=== PATIENT | female | born 1985 | race Caucasian/White ===

== ENCOUNTER 2017-07-09 15:15 | Outpatient (CLI) | payer OTHER | END 2017-07-09 15:16 | LOC: LAB.WCP 15:15 | PROVIDERS: ATTEND Physician Assistant | DX: R35.0 Frequency of micturition (principal); R10.9 Unspecified abdominal pain | CPT/HCPCS: 87086 ==

== ENCOUNTER 2017-11-22 08:19 | Outpatient (CLI) | payer OTHER ==
[2017-11-22] MEDS ORDERED: IOPAMIDOL-300 100 ML VIAL ONE (08:41)
[2017-11-22] MEDS ORDERED: IOPAMIDOL-300 100 ML VIAL IVP ONE ×2 (11:53)
--- NOTE | 2017-11-22 16:21 | CT Report ---
Reason: MASTODYNIA Procedure Date: 11/22/2017 Accession Number: [id number] / [id number] Procedure: CT - Chest W/ CPT Code: FULL RESULT: EXAM: CT CHEST EXAM DATE: 11/22/2017 09:41 AM. CLINICAL HISTORY: Mastodynia. COMPARISONS: Chest w/ 11/22/2017 9:29 AM. TECHNIQUE: Routine helical CT imaging was performed through the chest. IV contrast: None. Reconstructions: Coronal and sagittal. In accordance with CT protocol optimization, one or more of the following dose reduction techniques were utilized for this exam: automated exposure control, adjustment of mA and/or KV based on patient size, or use of iterative reconstructive technique. FINDINGS: Despite maximal field of view, the CT scanner bore does not allow visualization of the lateral most portions of both breasts on this examination. Lungs/Pleura: No nodules, bronchial thickening, consolidation, or edema. Pulmonary vasculature is normal. No pericardial or pleural effusion. No pneumothorax. Mediastinum: Normal. No adenopathy or masses. The heart and great vessels are normal. Bones: Unremarkable. Visualized Abdomen: Unremarkable. Other: None. IMPRESSION: Bilateral retroglandular breast implants. No abscess is identified. The lateral most portions of both breasts outside of the field of view. Recommendation: If clinical concern is for glandular breast pathology or implant malfunction, consider ultrasound of the breast or mammography/tomosynthesis as per ACR appropriateness criteria. These represent the imaging modality of choice for both breast pain and implant integrity. [facility]
== END 2017-11-22 08:20 | disposition home or self-care (01) ==
LOC: DI 08:19
PROVIDERS: ATTEND Obstetrics & Gynecology
DX: N64.4 Mastodynia (principal); Z98.82 Breast implant status
CPT/HCPCS: 71260; Q9967

== ENCOUNTER 2017-12-20 17:20 | Outpatient (CLI) | payer OTHER | END 2017-12-20 17:21 | disposition home or self-care (01) | LOC: LAB.R 17:20 | PROVIDERS: ATTEND Physician Assistant | DX: R35.0 Frequency of micturition (principal) | CPT/HCPCS: 87086 ==

== ENCOUNTER 2018-01-14 20:57 | Outpatient (CLI) | payer OTHER ==
--- NOTE | 2018-01-15 02:36 | Ultrasound Report ---
Reason: PELVIC PAIN Procedure Date: 01/14/2018 Accession Number: [id number] / [id number] Procedure: US - Pelvic w/Transvaginal CPT Code: FULL RESULT: EXAM: PELVIC ULTRASOUND EXAM DATE: 01/14/2018 09:32 PM. CLINICAL HISTORY: PELVIC PAIN. COMPARISON: ABDOMEN/PELVIS W/ 02/10/2016 5:12 PM. TECHNIQUE: Realtime transabdominal pelvic scan performed to identify the uterus and adnexa and as an overview of other pelvic structures, followed by transvaginal scan to provide greater detail of the uterus and adnexa, with static image documentation. FINDINGS: Uterus: 6.7 x 4.0 x 2.9 cm, volume 41 cc. Anteverted position. Normal overall size and echotexture. Masses: None. Endometrium: 7 mm. Normal. Cervix: Unremarkable. Right Ovary: 2.9 x 2.6 x 2.4 cm, volume 9 cc. Normal echotexture and blood flow. Incidental 2 cm follicle. Left Ovary: 2.6 x 2.3 x 1.9 cm, volume 6 cc. Normal echotexture and blood flow. Free Fluid: None. Other: None. IMPRESSION: Normal pelvic ultrasound. [facility]
== END 2018-01-14 20:58 | disposition home or self-care (01) ==
LOC: DI 20:57
PROVIDERS: ATTEND Registered Nurse
DX: R10.2 Pelvic and perineal pain (principal)
CPT/HCPCS: 76830; 76856

== ENCOUNTER 2020-02-23 16:40 | Outpatient (CLI) | payer OTHER ==
--- OUTSIDE RECORDS SUMMARY | 2020-02-24 04:53 | EXTERNAL MEDICAL SUMMARY RPT | Continuity of Care Document ---
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 PROSTHETIC DEV,IMPL,GRF 2013-03-25 16:15 ABDOMINAL PAIN, UNSPECIFIED [facility] 2013-05-05 09:06 OTH CELLS/CASTS IN URINE [facility] 2013-09-01 16:00 OTH MALAISE FATIGUE [facility] 2015-01-26 07:25 UNSPECIFIED CHRONIC GASTRITIS [facility] WITHOUT BLEEDING 2015-04-04 20:01 ACUTE VAGINITIS [facility] 2015-08-29 17:00 DYSURIA [facility] 2015-09-21 15:45 DYSURIA [facility] 2015-10-07 17:38 DYSURIA [facility] 2016-02-10 15:49 OTHER CHRONIC CYSTITIS WITHOUT [facility] HEMATURIA 2016-06-30 12:45 OTH SPECIFIC ARTHROPATHIES, [facility] NEC, OTH SITE 2017-07-09 15:15 UNSPECIFIED ABDOMINAL PAIN [facility] 2017-07-09 15:15 FREQUENCY OF MICTURITION [facility] 2017-11-22 08:19 MASTODYNIA [facility] 2017-11-22 08:19 BREAST IMPLANT STATUS [facility] dical [place] 2017-12-20 17:20 FREQUENCY OF MICTURITION [facility] 2018-01-14 20:57 PELVIC AND PERINEAL PAIN [facility] 2020-01-04 00:00:00 Health-related behavior [facility] [place] [facility] 2020-01-04 00:00:00 Tobacco use and exposure [facility] 2020-01-04 00:00:00 Exercise [facility] 2020-01-04 00:00:00 Never smoker [facility] 2020-01-04 00:00:00 Little interest or pleasure in [facility] doing things? [facility] 2020-01-04 00:00:00 Feeling down, depressed, or idbeyHe [facility] hopeless? [facility] 2020-01-04 00:00:00 Patient Health Questionnaire 2 [facility] item (PHQ2) total score [facility] 2020-01-04 00:00:00 Alcohol use [facility] 2020-01-04 00:00:00 Tobacco smoking status NHIS [facility] 2020-01-04 00:00:00 Total score? [facility] Allergies date description facility FLUOXETINE [facility] HYDROCHLOROTHIAZIDE W-TRIAMTERENE [facility] METAXALONE [facility] [id number] [facility] LISINOPRIL-HYDROCHLOROTHIAZIDE [facility] ANGIE INHIBITORS [facility] CORTICOSTEROIDS [facility] NO KNOWN ALLERGIES [facility] SULFA (SULFONAMIDE ANTIBIOTICS) [facility] NO KNOWN ALLERGIES [facility] CITALOPRAM ANALOGUES [facility] SHELLFISH DERIVED [facility] ACETAZOLAMIDE [facility] AMLODIPINE [facility] HYDROMORPHONE [facility] ATORVASTATIN [facility] BEE VENOM [facility] BENZYL ALCOHOL [facility] HY[facility]OCODONE [facility] INDOMETHACIN [facility] NAPROXEN [facility] TESTOSTERONE CYPIONATE [facility] Center PENICILLINS [facility] NO KNOWN ALLERGIES [facility] No Known Drug [facility]ergies [facility] NO KNOWN ENVIRONMENTAL ALLERGIES [facility] PENICILLINS [facility] SULFA ANTIBIOTICS [facility] PERFUME [facility] No Known Drug Allergies [facility] CLINDAMYCIN [facility] CORTISONE [facility] ERYTHROMYCIN [facility] PENICILLINS [facility] NO ALLERGY INFORMATION AVAILABLE [facility] No Known Drug Allergies [facility] Results test status date ordered by attending specimen jesus e Calcium unknown 2020-01-01 unknown unknown unknown 00:00:00 Glucose unknown 2020-01-01 unknown unknown unknown 00:00:00 BUN unknown 2020-01-01 unknown unknown unknown 00:00:00 Cholesterol_Total unknown 2020-01-01 unknown unknown unkn own 00:00:00 Protein_Total unknown 2020-01-01 unknown unknown unknown 00:00:00 Albumin unknown 2020-01-01 unknown unknown unknown 00:00:00 Bilirubin_Total unknown 2020-01-01 unknown unknown unknow n 00:00:00 Alkaline_Phosphatase unknown 2020-01-01 unknown unknown u nknown 00:00:00 AST_SGOT_ unknown 2020-01-01 unknown unknown unknown 00:00:00 Triglycerides unknown 2020-01-01 unknown unknown unknown 00:00:00 Potassium unknown 2020-01-01 unknown unknown unknown 00:00:00 Sodium unknown 2020-01-01 unknown unknown unknown 00:00:00 Chloride unknown 2020-01-01 unknown unknown unknown 00:00:00 Creatinine unknown 2020-01-01 unknown unknown unknown 00:00:00 Hemoglobin_A1c unknown 2020-01-01 unknown unknown unknown 00:00:00 ALT_SGPT_ unknown 2020-01-01 unknown unknown unknown 00:00:00 Carbon_Dioxide_Total unknown 2020-01-01 unknown unknown u nknown 00:00:00 WBC unknown 2020-01-01 unknown unknown unknown 00:00:00 RBC unknown 2020-01-01 unknown unknown unknown 00:00:00 Hemoglobin unknown 2020-01-01 unknown unknown unknown 00:00:00 Hematocrit unknown 2020-01-01 unknown unknown unknown 00:00:00 BUN_Creatinine_Ratio unknown 2020-01-01 unknown unknown u nknown 00:00:00 HDL_Cholesterol unknown 2020-01-01 unknown unknown unknow n 00:00:00 Globulin_Total unknown 2020-01-01 unknown unknown unknown 00:00:00 A_G_Ratio unknown 2020-01-01 unknown unknown unknown 00:00:00 MCV unknown 2020-01-01 unknown unknown unknown 00:00:00 MCH unknown 2020-01-01 unknown unknown unknown 00:00:00 MCHC unknown 2020-01-01 unknown unknown unknown 00:00:00 Neutrophils unknown 2020-01-01 unknown unknown unknown 00:00:00 Lymphs unknown 2020-01-01 unknown unknown unknown 00:00:00 Monocytes unknown 2020-01-01 unknown unknown unknown 00:00:00 Eos unknown 2020-01-01 unknown unknown unknown 00:00:00 Basos unknown 2020-01-01 unknown unknown unknown 00:00:00 Platelets unknown 2020-01-01 unknown unknown unknown 00:00:00 Lymphs_Absolute_ unknown 2020-01-01 unknown unknown unkno wn 00:00:00 Monocytes_Absolute_ unknown 2020-01-01 unknown unknown un known 00:00:00 mean_corpuscular_hemo unknown 2020-01-01 unknown unknown unknown globin_concentration_R 00:00:00 BC red_blood_cell_distri unknown 2020-01-01 unknown unknown unknown bution_width 00:00:00 mean_corpuscular_hemo unknown 2020-01-01 unknown unknown unknown globin_RBC 00:00:00 RDW unknown 2020-01-01 unknown unknown unknown 00:00:00 calcium_serum unknown 2020-01-01 unknown unknown unknown 00:00:00 chloride_serum unknown 2020-01-01 unknown unknown unknown 00:00:00 cholesterol_serum unknown 2020-01-01 unknown unknown unkn own 00:00:00 albumin_globulin_rati unknown 2020-01-01 unknown unknown unknown o_serum 00:00:00 sodium_serum unknown 2020-01-01 unknown unknown unknown 00:00:00 Alanine_aminotransfer unknown 2020-01-01 unknown unknown unknown ase_Enzymatic_activity 00:00:00 _volume_in_Serum_or_Pl asma Albumin_Mass_volume_i unknown 2020-01-01 unknown unknown unknown n_Serum_or_Plasma 00:00:00 Albumin_Globulin_Mass unknown 2020-01-01 unknown unknown unknown _Ratio_in_Serum_or_Pla 00:00:00 sma Alkaline_phosphatase_ unknown 2020-01-01 unknown unknown unknown Enzymatic_activity_vol 00:00:00 ume_in_Blood creatinine_serum unknown 2020-01-01 unknown unknown unkno wn 00:00:00 Aspartate_aminotransf unknown 2020-01-01 unknown unknown unknown erase_Enzymatic_activi 00:00:00 ty_volume_in_Serum_or_ Plasma Bilirubin.total_Mass_ unknown 2020-01-01 unknown unknown unknown volume_in_Serum_or_Pla 00:00:00 sma albumin_serum unknown 2020-01-01 unknown unknown unknown 00:00:00 Calcium_Moles_volume_ unknown 2020-01-01 unknown unknown unknown in_Serum_or_Plasma 00:00:00 carbon_dioxide_serum_ unknown 2020-01-01 unknown unknown unknown total 00:00:00 Chloride_Moles_volume unknown 2020-01-01 unknown unknown unknown _in_Serum_or_Plasma 00:00:00 Cholesterol_in_HDL_Ma unknown 2020-01-01 unknown unknown unknown ss_volume_in_Serum_or_ 00:00:00 Plasma_-_mg_dL Cholesterol_Mass_volu unknown 2020-01-01 unknown unknown unknown me_in_Serum_or_Plasma_ 00:00:00 -_mg_dL Creatinine_Mass_volum unknown 2020-01-01 unknown unknown unknown e_in_Serum_or_Plasma 00:00:00 Globulin_Mass_volume_ unknown 2020-01-01 unknown unknown unknown in_Serum 00:00:00 Glucose_Mass_volume_i unknown 2020-01-01 unknown unknown unknown n_Serum_or_Plasma 00:00:00 monocytes_as_percent_ unknown 2020-01-01 unknown unknown unknown of_blood_leukocytes 00:00:00 basophils_as_percent_ unknown 2020-01-01 unknown unknown unknown of_blood_leukocytes 00:00:00 urea_nitrogen_creatin unknown 2020-01-01 unknown unknown unknown ine_ratio_serum 00:00:00 Triglyceride_Mass_vol unknown 2020-01-01 unknown unknown unknown ume_in_Serum_or_Plasma 00:00:00 _-_mg_dL HDL_cholesterol_serum unknown 2020-01-01 unknown unknown unknown 00:00:00 hemoglobin_A1C_blood_ unknown 2020-01-01 unknown unknown unknown as_of_total_hemoglobin 00:00:00 Potassium_Moles_volum unknown 2020-01-01 unknown unknown unknown e_in_Serum_or_Plasma 00:00:00 Protein_Mass_volume_i unknown 2020-01-01 unknown unknown unknown n_Serum_or_Plasma 00:00:00 Sodium_Moles_volume_i unknown 2020-01-01 unknown unknown unknown n_Serum_or_Plasma 00:00:00 alkaline_phosphatase_ unknown 2020-01-01 unknown unknown unknown serum 00:00:00 lymphocyte_count_bloo unknown 2020-01-01 unknown unknown unknown d_automated 00:00:00 monocyte_count_blood_ unknown 2020-01-01 unknown unknown unknown automated 00:00:00 globulins_serum_total unknown 2020-01-01 unknown unknown unknown 00:00:00 Urea_nitrogen_Mass_vo unknown 2020-01-01 unknown unknown unknown lume_in_Serum_or_Plasm 00:00:00 a Urea_nitrogen_Creatin unknown 2020-01-01 unknown unknown unknown ine_Mass_Ratio_in_Seru 00:00:00 m_or_Plasma mean_corpuscular_volu unknown 2020-01-01 unknown unknown unknown me_RBC 00:00:00 neutrophils_as_percen unknown 2020-01-01 unknown unknown unknown t_of_blood_leukocytes 00:00:00 lymphocytes_as_percen unknown 2020-01-01 unknown unknown unknown t_of_blood_leukocytes 00:00:00 potassium_serum unknown 2020-01-01 unknown unknown unknow n 00:00:00 blood_glucose unknown 2020-01-01 unknown unknown unknown 00:00:00 protein_total_serum unknown 2020-01-01 unknown unknown un known 00:00:00 aspartate_aminotransf unknown 2020-01-01 unknown unknown unknown erase_SGOT_serum 00:00:00 carbon_dioxide_serum_ unknown 2020-01-01 unknown unknown unknown total 00:00:00 alanine_aminotransfer unknown 2020-01-01 unknown unknown unknown ase_SGPT_serum 00:00:00 eosinophils_as_percen unknown 2020-01-01 unknown unknown unknown t_of_blood_leukocytes 00:00:00 bilirubin_serum_total unknown 2020-01-01 unknown unknown unknown 00:00:00 triglyceride_serum_fa unknown 2020-01-01 unknown unknown unknown sting 00:00:00 Hematocrit_Volume_Fra unknown 2020-01-01 unknown unknown unknown ction_of_Blood_by_Auto 00:00:00 mated_count Hemoglobin_A1c_Hemogl unknown 2020-01-01 unknown unknown unknown obin_total_in_Blood_-_ 00:00:00 Monocytes_100_leukocy unknown 2020-01-01 unknown unknown unknown tes_in_Blood_by_Automa 00:00:00 ted_count hematocrit_blood unknown 2020-01-01 unknown unknown unkno wn 00:00:00 hemoglobin_blood unknown 2020-01-01 unknown unknown unkno wn 00:00:00 platelet_count unknown 2020-01-01 unknown unknown unknown 00:00:00 Leukocytes_volume_in_ unknown 2020-01-01 unknown unknown unknown Blood_by_Automated_cou 00:00:00 nt erythrocyte_RBC_count unknown 2020-01-01 unknown unknown unknown 00:00:00 leukocyte_count_blood unknown 2020-01-01 unknown unknown unknown 00:00:00 Basophils_100_leukocy unknown 2020-01-01 unknown unknown unknown tes_in_Blood_by_Manual 00:00:00 _count Eosinophils_100_leuko unknown 2020-01-01 unknown unknown unknown cytes_in_Blood_by_Auto 00:00:00 mated_count Hemoglobin_Mass_volum unknown 2020-01-01 unknown unknown unknown e_in_Blood 00:00:00 Lymphocytes_volume_in unknown 2020-01-01 unknown unknown unknown _Blood_by_Automated_co 00:00:00 unt Lymphocytes_100_leuko unknown 2020-01-01 unknown unknown unknown cytes_in_Blood_by_Auto 00:00:00 mated_count Monocytes_volume_in_B unknown 2020-01-01 unknown unknown unknown lood_by_Automated_coun 00:00:00 t Neutrophils_100_leuko unknown 2020-01-01 unknown unknown unknown cytes_in_Blood_by_Auto 00:00:00 mated_count Platelets_volume_in_B unknown 2020-01-01 unknown unknown unknown lood_by_Automated_coun 00:00:00 t MCH_Entitic_mass_by_A unknown 2020-01-01 unknown unknown unknown utomated_count 00:00:00 MCHC_Mass_volume_by_A unknown 2020-01-01 unknown unknown unknown utomated_count 00:00:00 MCV_Entitic_volume_by unknown 2020-01-01 unknown unknown unknown _Automated_count 00:00:00 Erythrocyte_distribut unknown 2020-01-01 unknown unknown unknown ion_width_Ratio_by_Aut 00:00:00 omated_count Erythrocytes_volume_i unknown 2020-01-01 unknown unknown unknown n_Blood_by_Automated_c 00:00:00 ount urea_nitrogen_blood unknown 2020-01-01 unknown unknown un known 00:00:00 facility observation status value reference units lab abnor mal line range code notes [facility] Calcium unknown 9.1 unknown mg/dL _001 unkno wn unknown [facility] 016 [place] [facility] Glucose unknown 77 unknown mg/dL _001 unkno wn unknown [facility] 032 [place] [facility] BUN unknown 14 unknown mg/dL _001 unknow n unknown [facility] 040 [place] [facility] Cholesterol_To unknown 148 unknown mg/dL _001 unknown unknown [facility] lilliana 065 [place] [facility] Protein_Total unknown 7.3 unknown g/dL _001 unknown unknown [facility] 073 [place] [facility] Albumin unknown 4.6 unknown g/dL _001 unkno wn unknown [facility] 081 [place] [facility] Bilirubin_Tota unknown 0.3 unknown mg/dL _001 unknown unknown [facility] l 099 [place] [facility] Alkaline_Phosp unknown 74 unknown U/L _001 unknown unknown [facility] hatase 107 [place] [facility] AST_SGOT_ unknown 16 unknown U/L _001 unk nown unknown [facility] 123 [place] [facility] Triglycerides unknown 109 unknown mg/dL _001 unknown unknown [facility] 172 [place] [facility] Potassium unknown 4.1 unknown mmol/ _001 unk nown unknown Primary [facility] L 180 [place] [facility] Sodium unknown 140 unknown mmol/ _001 unknow n unknown Primary [facility] L 198 [place] [facility] Chloride unknown 104 unknown mmol/ _001 unkn own unknown Primary [facility] L 206 [place] [facility] Creatinine unknown 0.68 unknown mg/dL _001 un known unknown [facility] 370 [place] [facility] Hemoglobin_A1c unknown 4.5 unknown % _001 unknown unknown [facility] 481 [place] [facility] ALT_SGPT_ unknown 11 unknown U/L _001 unk nown unknown [facility] 545 [place] [facility] Carbon_Dioxide unknown 22 unknown mmol/ _001 unknown unknown [facility] _Total L 578 [place] [facility] WBC unknown 6.2 unknown _005 unknow n unknown [facility] X10E3/U 025 [place] [facility] L [facility] RBC unknown 4.48 unknown _005 unknow n unknown [facility] X10E6/U 033 [place] [facility] L [facility] Hemoglobin unknown 13.9 unknown g/dL _005 un known unknown [facility] 041 [place] [facility] Hematocrit unknown 41.4 unknown % _005 un known unknown [facility] 058 [place] [facility] BUN_Creatinine unknown 21 unknown _011 unknown unknown [facility] _Ratio 577 [place] [facility] HDL_Cholestero unknown 59 unknown mg/dL _011 unknown unknown [facility] l 817 [place] [facility] Globulin_Total unknown 2.7 unknown g/dL _012 unknown unknown [facility] 039 [place] [facility] A_G_Ratio unknown 1.7 unknown _012 unk nown unknown [facility] 047 [place] [facility] MCV unknown 92 unknown fL _015 unknow n unknown [facility] 065 [place] [facility] MCH unknown 31.0 unknown pg _015 unknow n unknown [facility] 073 [place] [facility] MCHC unknown 33.6 unknown G/DL _015 unknow n unknown [facility] 081 [place] [facility] Neutrophils unknown 49 unknown % _015 u nknown unknown [facility] 107 [place] [facility] Lymphs unknown 41 unknown % _015 unknow n unknown [facility] 123 [place] [facility] Monocytes unknown 8 unknown % _015 unk nown unknown [facility] 131 [place] [facility] Eos unknown 1 unknown % _015 unknow n unknown [facility] 149 [place] [facility] Basos unknown 1 unknown % _015 unknow n unknown [facility] 156 [place] [facility] Platelets unknown 228 unknown _015 unk nown unknown [facility] X10E3/U 172 [place] [facility] L [facility] Lymphs_[place] unknown 2.5 unknown _015 unknown unknown [facility] e_ X10E3/U 917 [place] [facility] L [facility] Monocytes_Abso unknown 0.5 unknown _015 unknown unknown [facility] lute_ X10E3/U 925 [place] [facility] L [facility] mean_corpuscul unknown 33.6 unknown G/DL _102 unknown unknown [facility] ar_hemoglobin_c 9 [place] [facility] oncentration_RB C [facility] red_blood_cell unknown 11.3 unknown % _103 unknown unknown [facility] _distribution_w 0 [place] [facility] idth [facility] mean_corpuscul unknown 31.0 unknown pg _103 unknown unknown [facility] ar_hemoglobin_R 1 [place] [facility] BC [facility] RDW unknown 11.3 unknown % _105 unknow n unknown [facility] 007 [place] [facility] calcium_serum unknown 9.1 unknown mg/dL _11 unknown unknown [facility] [facility] chloride_serum unknown 104 unknown mmol/ _13 unknown unknown [facility] L [place] [facility] cholesterol_se unknown 148 unknown mg/dL _14 unknown unknown [facility] rum [place] [facility] albumin_globul unknown 1.7 unknown _146 unknown unknown [facility] in_ratio_serum [place] [facility] sodium_serum unknown 140 unknown mmol/ _159 unknown unknown [facility] L [place] [facility] Alanine_aminot unknown 11 unknown U/L _174 unknown unknown [facility] ransferase_Enzy 2-6 [place] [facility] matic_activity_ volume_in_Serum _or_Plasma [facility] Albumin_Mass_v unknown 4.6 unknown g/dL _175 unknown unknown [facility] olume_in_Serum_ 1-7 [place] [facility] or_Plasma [facility] Albumin_Globul unknown 1.7 unknown _175 unknown unknown [facility] in_Mass_Ratio_i 9-0 [place] [facility] n_Serum_or_Plas ma [facility] Alkaline_phosp unknown 74 unknown U/L _178 unknown unknown [facility] hatase_Enzymati 3-0 [place] [facility] c_activity_volu me_in_Blood [facility] creatinine_ser unknown 0.68 unknown mg/dL _18 unknown unknown [facility] um [place] [facility] Aspartate_amin unknown 16 unknown U/L _192 unknown unknown [facility] otransferase_En 0-8 [place] [facility] zymatic_activit y_volume_in_Ser um_or_Plasma [facility] Bilirubin.tota unknown 0.3 unknown mg/dL _197 unknown unknown [facility] l_Mass_volume_i 5-2 [place] [facility] n_Serum_or_Plas ma [facility] albumin_serum unknown 4.6 unknown g/dL _2 unknown unknown [facility] [place] [facility] Calcium_Moles_ unknown 9.1 unknown mg/dL _200 unknown unknown [facility] volume_in_Serum 0-8 [place] [facility] _or_Plasma [facility] carbon_dioxide unknown 22 unknown mmol/ _202 unknown unknown [facility] _serum_total L 8-9 [place] [facility] Chloride_Moles unknown 104 unknown mmol/ _207 unknown unknown [facility] _volume_in_Seru L 5-0 [place] [facility] m_or_Plasma [facility] Cholesterol_in unknown 59 unknown mg/dL _208 unknown unknown [facility] _HDL_Mass_volum 5-9 [place] [facility] e_in_Serum_or_P lasma_-_mg_dL [facility] Cholesterol_Ma unknown 148 unknown mg/dL _209 unknown unknown [facility] ss_volume_in_Se 3-3 [place] [facility] rum_or_Plasma_- _mg_dL [facility] Creatinine_Mas unknown 0.68 unknown mg/dL _216 unknown unknown [facility] s_volume_in_Ser 0-0 [facility] [facility] um_or_Plasma [facility] Globulin_Mass_ unknown 2.7 unknown g/dL _233 unknown unknown [facility] volume_in_Serum 6-6 [place] [facility] Glucose_Mass_v unknown 77 unknown mg/dL _234 unknown unknown [facility] olume_in_Serum_ 5-7 [place] [facility] or_Plasma [facility] monocytes_as_p unknown 8 unknown % _242 unknown unknown [facility] ercent_of_blood 1 [place] [facility] _leukocytes [facility] basophils_as_p unknown 1 unknown % _242 unknown unknown [facility] ercent_of_blood 6 [facility] [facility] _leukocytes [facility] urea_nitrogen_ unknown 21 unknown _246 unknown unknown [facility] creatinine_rati 2 [place] [facility] o_serum [facility] Triglyceride_M unknown 109 unknown mg/dL _257 unknown unknown [facility] ass_volume_in_S 1-8 [facility] [facility] erum_or_Plasma_ -_mg_dL [facility] HDL_cholestero unknown 59 unknown mg/dL _26 unknown unknown [facility] l_serum [place] [facility] hemoglobin_A1C unknown 4.5 unknown % _28 unknown unknown [facility] _blood_as_of_to [facility] tal_hemoglobin [facility] Potassium_Mole unknown 4.1 unknown mmol/ _282 unknown unknown [facility] s_volume_in_Ser L 3-3 [facility] um_or_Plasma [facility] Protein_Mass_v unknown 7.3 unknown g/dL _288 unknown unknown [facility] olume_in_Serum_ 5-2 [facility] [facility] or_Plasma [facility] Sodium_Moles_v unknown 140 unknown mmol/ _295 unknown unknown [facility] olume_in_Serum_ L 1-2 [facility] [facility] or_Plasma [facility] alkaline_phosp unknown 74 unknown U/L _3 unknown unknown [facility] hatase_serum [place] [facility] lymphocyte_cou unknown 2.5 unknown _307 unknown unknown [facility] nt_blood_automa X10E3/U 4 [facility] [facility] kevin L [facility] monocyte_count unknown 0.5 unknown _307 unknown unknown [facility] _blood_automate X10E3/U 6 [facility] [facility] d L [facility] globulins_seru unknown 2.7 unknown g/dL _307 unknown unknown [facility] m_total 8 [place] [facility] Urea_nitrogen_ unknown 14 unknown mg/dL _309 unknown unknown [facility] Mass_volume_in_ 4-0 [facility] Serum_or_Plasma [facility] Urea_nitrogen_ unknown 21 unknown _309 unknown unknown [facility] Creatinine_Mass 7-3 [place] [facility] _Ratio_in_Serum _or_Plasma [facility] mean_corpuscul unknown 92 unknown fL _315 unknown unknown [facility] ar_volume_RBC [facility] [facility] neutrophils_as unknown 49 unknown % _316 unknown unknown [facility] _percent_of_blo [facility] [facility] od_leukocytes [facility] lymphocytes_as unknown 41 unknown % _317 unknown unknown [facility] _percent_of_blo [facility] od_leukocytes [facility] potassium_seru unknown 4.1 unknown mmol/ _35 unknown unknown [facility] m L [place] [facility] blood_glucose unknown 77 unknown mg/dL _356 unknown unknown [facility] 5 [place] [facility] protein_total_ unknown 7.3 unknown g/dL _36 unknown unknown [facility] serum [facility] aspartate_amin unknown 16 unknown U/L _39 unknown unknown [facility] otransferase_SG [facility] OT_serum [facility] carbon_dioxide unknown 22 unknown mmol/ _396 unknown unknown [facility] _serum_total L 2 [facility] alanine_aminot unknown 11 unknown U/L _40 unknown unknown [facility] ransferase_SGPT [facility] _serum [facility] eosinophils_as unknown 1 unknown % _417 unknown unknown [facility] _percent_of_blo 0 [facility] od_leukocytes [facility] bilirubin_seru unknown 0.3 unknown mg/dL _43 unknown unknown [facility] m_total [facility] triglyceride_s unknown 109 unknown mg/dL _44 unknown unknown [facility] erum_fasting [facility] Hematocrit_Vol unknown 41.4 unknown % _454 unknown unknown [facility] ume_Fraction_of 4-3 [facility] _Blood_by_Autom ated_count [facility] Hemoglobin_A1c unknown 4.5 unknown % _454 unknown unknown [facility] _Hemoglobin_tot 8-4 [facility] al_in_Blood_-_ [facility] Monocytes_100_ unknown 8 unknown % _590 unknown unknown [facility] leukocytes_in_B 5-5 [facility] lood_by_Automat ed_count [facility] hematocrit_blo unknown 41.4 unknown % _64 unknown unknown [facility] od [facility] hemoglobin_blo unknown 13.9 unknown g/dL _65 unknown unknown [facility] od [facility] platelet_count unknown 228 unknown _66 unknown unknown [facility] X10E3/U [facility] Leukocytes[facility]vol [facility] 6.2 unknown _669 unknown unknown [facility] ume_in_Blood_by X10E3/U 0-2 [facility] _Automated[facility]coun [facility] erythrocyte_RB unknown 4.48 unknown _67 unknown unknown [facility] C_count X10E6/U [facility] leukocyte_coun unknown 6.2 unknown _68 unknown unknown [facility] t_blood X10E3/U [facility] Basophils_100_ unknown 1 unknown % _707 unknown unknown [facility] leukocytes_in_B -0 [facility] lood_by_Manual_ count [facility] Eosinophils[facility]10 unknown 1 unknown % _713 unknown unknown [facility] 0_leukocytes_in -8 [facility] _Blood_by_Autom ated_count [facility] Hemoglobin_Mas unknown 13.9 unknown g/dL _718 unknown unknown [facility] s_volume_in_Blo -7 [facility] od [facility] Lymphocytes_vo unknown 2.5 unknown _731 unknown unknown [facility] lume_in_Blood_b X10E3/U -0 [facility] y_Automated_cou L nt [facility] Lymphocytes_10 unknown 41 unknown % _736 unknown unknown [facility] 0_leukocytes_in -9 [facility] _Blood_by_Autom ated_count [facility] Monocytes_volu unknown 0.5 unknown _742 unknown unknown [facility] me_in_Blood_by_ X10E3/U -7 [facility] Automated_count L [facility] Neutrophils_10 unknown 49 unknown % _770 unknown unknown [facility] 0_leukocytes_in -8 [facility] _Blood_by_Autom ated_count [facility] Platelets_volu unknown 228 unknown _777 unknown unknown [facility] me_in_Blood_by_ X10E3/U -3 [facility] Automated_count L [facility] MCH_Entitic_ma unknown 31.0 unknown pg _785 unknown unknown [facility] ss_by_Automated -6 [facility] _count [facility] MCHC_Mass_volu unknown 33.6 unknown G/DL _786 unknown unknown [facility] me_by_Automated -4 [facility] _[facility] MCV_Entitic_vo unknown 92 unknown fL _787 unknown unknown [facility] lume_by_Automat -2 [facility] ed_count [facility] Erythrocyte_di unknown 11.3 unknown % _788 unknown unknown [facility] stribution_widt -0 [facility] h_Ratio_by_Auto mated_count [facility] Erythrocytes_v unknown 4.48 unknown _789 unknown unknown [facility] olume_in_Blood_ X10E6/U -8 [facility] by_Automated_co [facility] urea_nitrogen_ unknown 14 unknown mg/dL _9 unknown unknown [facility] blood [facility] Social History date description facility 2020-01-04 00:00:00 Never smoker [facility] Social History date description facility 2020-01-04 00:00:00 Never smoker [facility] date description facility [id number]
== END 2020-02-23 16:41 | disposition home or self-care (01) ==
LOC: COV 16:40
PROVIDERS: ATTEND Family Medicine
DX: R05 Cough (principal); M79.10 Myalgia, unspecified site; R53.83 Other fatigue; R07.0 Pain in throat; R09.81 Nasal congestion; J34.89 Other specified disorders of nose and nasal sinuses; Z20.822 Contact with and (suspected) exposure to COVID-19

== ENCOUNTER 2021-06-22 16:55 | Outpatient (CLI) | payer BC | END 2021-06-22 16:56 | disposition short-term general hospital (02) | LOC: EMS 16:55 | DX: R07.9 Chest pain, unspecified (principal); R20.0 Anesthesia of skin; F41.9 Anxiety disorder, unspecified | CPT/HCPCS: A0425; A0427 ==

== ENCOUNTER 2021-10-20 10:16 | Outpatient (CLI) | payer BC ==
[2021-10-20 10:36] LABS: BASOPHILS % (AUTO) 0.6 %; EOSINOPHILS % (AUTO) 0.6 %; HCT - HEMATOCRIT 42.3 % (37.0-47.0); HGB - HEMOGLOBIN 14.3 g/dL (12.0-16.0); LYMPHOCYTES # (AUTO) 2.3 10^3/uL (1.5-3.5); LYMPHOCYTES % (AUTO) 32.9 %; MEAN CORPUSCULAR HEMOGLOBIN 29.4 pg (27.0-31.0); MEAN CORPUSCULAR HGB CONC 33.8 g/dL (32.0-36.0); MEAN CORPUSCULAR VOLUME 86.9 fL (81.0-99.0); MEAN PLATELET VOLUME 9.9 fL (7.9-10.8); MONOCYTES # (AUTO) 0.5 10^3/uL (0.0-1.0); MONOCYTES % (AUTO) 6.5 %; NEUTROPHILS # (AUTO) 4.2 10^3/uL (1.5-6.6); NEUTROPHILS % (AUTO) 59.1 %; PLT - PLATELET COUNT 250 10^3/uL (130-450); RED BLOOD COUNT 4.87 10^6/uL (4.20-5.40); RED CELL DISTRIBUTION WIDTH 11.5 % (12.0-15.0); WHITE BLOOD COUNT 7.1 x10^3/uL (4.8-10.8)
[2021-10-20 10:59] LABS: % IRON SATURATION 32 % (20-50); ALBUMIN 4.9 g/dL (3.2-5.5); ALBUMIN/GLOBULIN RATIO 1.8 (1.0-2.2); ALKALINE PHOSPHATASE 55 IU/L (42-121); ALT ALANINE AMINOTRANSFERASE 12 IU/L (10-60); AST ASPARTATE AMINOTRANSFERASE 17 IU/L (10-42); BILIRUBIN,TOTAL 0.7 mg/dL (0.2-1.0); BUN - BLOOD UREA NITROGEN 16 mg/dL (6-20); CALCIUM 9.6 mg/dL (8.5-10.3); CARBON DIOXIDE - CO2 24 mmol/L (21-32); CHLORIDE 107 mmol/L (101-111); CREATININE 0.6 mg/dL (0.4-1.0); GFR - MDRD 113 (>89); GLUCOSE 85 mg/dL (70-100); IRON 120 ug/dL (28-170); SODIUM 139 mmol/L (135-145); TOTAL IRON BINDING CAPACITY 375 ug/dL (250-450); TOTAL PROTEIN 7.7 g/dL (6.7-8.2); TRANSFERRIN 268 mg/dL (192-382); URIC ACID 5.6 mg/dL (2.6-7.2)
[2021-10-20 11:08] LABS: THYROID STIMULATING HORMONE 1.37 uIU/mL (0.34-5.60)
[2021-10-20 11:10] LABS: FREE T4 (FREE THYROXINE) 0.83 ng/dL (0.58-1.64)
[2021-10-20 11:35] LABS: CRP - C-REACTIVE PROTEIN < 1.0 mg/dL (0-1.0)
[2021-10-20 17:04] LABS: RHEUMATOID FACTOR NEGATIVE (Negative)
[2021-10-21 17:08] LABS: ANTI-DNA (DS) AB QN 1 IU/mL (0-9); CENTROMERE B ANTIBODIES <0.2 AI (0.0-0.9); CHROMATIN ANTIBODIES <0.2 AI (0.0-0.9); JO-1 AB <0.2 AI (0.0-0.9); RIBOSOMAL P ANTIBODIES <0.2 AI (0.0-0.9); RNP ANTIBODIES <0.2 AI (0.0-0.9); SCLERODERMA-70 ANTIBODIES <0.2 AI (0.0-0.9); SJOGREN'S ANTI-SS-A <0.2 AI (0.0-0.9); SJOGREN'S ANTI-SS-B <0.2 AI (0.0-0.9); SMITH ANTIBODIES <0.2 AI (0.0-0.9); SMITH/RNP ANTIBODIES <0.2 AI (0.0-0.9)
[2021-10-23 22:07] LABS: CYCLIC CITRULLINATED PEP IGG/A 4 units (0-19)
== END 2021-10-20 10:17 | disposition home or self-care (01) ==
LOC: LAB 10:16
PROVIDERS: ATTEND Physician Assistant
DX: R53.83 Other fatigue (principal); F41.9 Anxiety disorder, unspecified; Z13.29 Encounter for screening for other suspected endocrine disorder; M79.602 Pain in left arm; M79.601 Pain in right arm; M79.642 Pain in left hand; M79.641 Pain in right hand; M25.512 Pain in left shoulder; M25.511 Pain in right shoulder
CPT/HCPCS: 36415; 80053; 83540; 84439; 84443; 84466; 84550; 85025; 85651; 86140; 86200; 86225; 86235; 86430

== ENCOUNTER 2021-12-19 16:35 | Outpatient (CLI) | payer BC ==
--- NOTE | 2021-12-19 16:05 | XRAY Report ---
PROCEDURE: Elbow 3 View RT INDICATIONS: RIGHT ELBOW PAIN TECHNIQUE: 3 views of the elbow were acquired. COMPARISON: None FINDINGS: Bones: No fractures or dislocations. No suspicious bony lesions. Soft tissues: No elbow joint effusion. No suspicious soft tissue calcifications. IMPRESSION: No acute fracture. No osseous lesion. If symptoms and/or clinical suspicion for pathology continue, f urther assessment with repeat plain films, or advanced imaging (e.g., CT, MRI, or bone scan) is recom mended for further assessment. Reviewed by: Yessica Braswell MD on 12/19/2021 4:04 PM PST Approved by: Yessica Braswell MD on 12/19/2021 4:04 PM PST Station ID: [id number]
== END 2021-12-19 16:36 | disposition home or self-care (01) ==
LOC: DI.WOS 16:35
PROVIDERS: ATTEND Physician Assistant Surgical
DX: M77.11 Lateral epicondylitis, right elbow (principal)

== ENCOUNTER 2021-12-21 14:58 | Outpatient (CLI) | payer BC ==
--- NOTE | 2021-12-21 11:10 | XRAY Report ---
PROCEDURE: Knee 4 View LT INDICATIONS: LEFT KNEE PAIN TECHNIQUE: 4 views of the left knee(s) were acquired. COMPARISON: None. FINDINGS: Bones: No fractures or dislocations. No suspicious bony lesions. Soft tissues: No joint effusion. No suspicious soft tissue calcifications. IMPRESSION: Negative left knee. Reviewed by: Micah Mehta MD on 12/21/2021 11:09 AM [facility] Approved by: Micah Mehta MD on 12/21/2021 11:09 AM [facility] Station ID: [id number]
== END 2021-12-21 14:59 | disposition home or self-care (01) ==
LOC: DI.WOS 14:58
PROVIDERS: ATTEND Physician Assistant Surgical
DX: M25.562 Pain in left knee (principal)

== ENCOUNTER 2022-08-17 07:04 | Outpatient (CLI) | payer BC ==
--- NOTE | 2022-08-17 14:22 | Ultrasound Report ---
PROCEDURE: Abdomen Limited INDICATIONS: RUQ ABD PAIN TECHNIQUE: Real-time focused scanning was performed of the abdomen, with image documentation. COMPARISONS: CT of abdomen and pelvis dated 02/10/2016. FINDINGS: Liver: Liver is normal in size and heterogeneous in echotexture. 1.1 x 0.9 x 1.7 cm echogenic focus is noted in right hepatic lobe. Gallbladder: Unremarkable. Biliary ducts: Intrahepatic bile ducts are non-dilated. Extrahepatic bile duct caliber measures 5 m m. Normal is 6-7 mm or less in diameter, or 10 mm or less post-cholecystectomy. Pancreas: Visualized portions of the pancreas are sonographically normal. Right kidney: Normal in size and echotexture. Right kidney measures 11.2 cm long. No hydronephrosis or nephrolithiasis. No solid masses. No complex renal cystic lesions which require follow-up. Aorta: Visualized aorta is normal in caliber at less than 3 cm. IVC: Intrahepatic inferior vena cava is patent. Miscellaneous: No free abdominal fluid. IMPRESSION: 1. Heterogeneous liver parenchymal echotexture suggestive of mild hepatic steatosis. Possible small h emangioma in right hepatic lobe as described above which was also seen on previous CT exam dated 01/13. 2. Rest of the exam is unremarkable. Reviewed by: Sarbjit Rodríguez MD on 08/17/2022 2:21 PM PDT Approved by: Sarbjit Rodríguez MD on 08/17/2022 2:21 PM PDT Station ID: [id number]
== END 2022-08-17 07:05 | disposition home or self-care (01) ==
LOC: DI 07:04
PROVIDERS: ATTEND Physician Assistant
DX: R10.11 Right upper quadrant pain (principal)

== ENCOUNTER 2023-01-01 07:59 | Outpatient (CLI) | payer BC ==
[2023-01-01 08:12] LABS: BASOPHILS % (AUTO) 0.5 %; EOSINOPHILS % (AUTO) 0.5 %; HGB - HEMOGLOBIN 13.1 g/dL (12.0-16.0); LYMPHOCYTES # (AUTO) 1.5 10^3/uL (1.5-3.5); LYMPHOCYTES % (AUTO) 26.9 %; MEAN CORPUSCULAR HEMOGLOBIN 29.6 pg (27.0-31.0); MEAN CORPUSCULAR HGB CONC 32.8 g/dL (32.0-36.0); MEAN CORPUSCULAR VOLUME 90.3 fL (81.0-99.0); MONOCYTES # (AUTO) 0.4 10^3/uL (0.0-1.0); NEUTROPHILS # (AUTO) 3.5 10^3/uL (1.5-6.6); NEUTROPHILS % (AUTO) 63.9 %; PLT - PLATELET COUNT 206 10^3/uL (130-450); RED BLOOD COUNT 4.43 10^6/uL (4.20-5.40); RED CELL DISTRIBUTION WIDTH 11.7 % (12.0-15.0); WHITE BLOOD COUNT 5.5 x10^3/uL (4.8-10.8)
[2023-01-01 08:33] LABS: ALBUMIN 4.5 g/dL (3.2-5.5); ALBUMIN/GLOBULIN RATIO 2.3 (1.0-2.2); BILIRUBIN,TOTAL 0.6 mg/dL (0.2-1.0); CALCIUM 9.2 mg/dL (8.5-10.3); CREATININE 0.6 mg/dL (0.6-1.3); POTASSIUM 3.9 mmol/L (3.5-4.5); TOTAL PROTEIN 6.5 g/dL (6.4-8.9)
[2023-01-01 08:44] LABS: THYROID STIMULATING HORMONE 1.23 uIU/mL (0.34-5.60)
== END 2023-01-01 08:00 | disposition home or self-care (01) ==
LOC: LAB 07:59
PROVIDERS: ATTEND Physician Assistant
DX: R10.11 Right upper quadrant pain (principal); Z13.29 Encounter for screening for other suspected endocrine disorder
CPT/HCPCS: 36415; 80053; 83690; 84443; 85025